=== PATIENT | female | born 1960 | race Caucasian/White ===

== ENCOUNTER 2016-11-30 14:57 | Inpatient (IN) | payer BC ==
[~2016-11-30] VITALS: Ht 162.6 cm; Wt 53.3 kg
[2016-11-30] MEDS ORDERED: ESTR1.25 PO (15:15)
[2016-11-30] MEDS ORDERED: LOSA1TAB19 PO (15:15)
--- NOTE | 2016-11-30 15:20 | NUR ---
ARRIVAL PATIENT ARRIVED TO ED[facility] AMBULATORY, C/O OF EPIGASTRIC PAIN TODAY, WAS SEEN RECENTLY IN THE URGENT CARE FOR NAUSEA AND VOMITING, SENT HOME WITH ZOFRAN, DID TAKE IT FOR A COUPLE OF DAY STARTED TO FEEL BETTER, BUT EPIGASTRIC PAIN CONTINUED AFTER EATING STEW. DECIDED TO TAKE ZOFRAN AND COME TO ED FOR FURTHER EVAL BY EDP. NO DISTRESS NOTED.
--- NOTE | 2016-11-30 15:48 | ER.PDOC ---
General Chief Complaint: Abdomen Pain Stated Complaint: ABD PAIN Time seen by MD: 15:40 Source: patient Exam Limitations: no limitations History of Present Illness Initial Comments Mid epigastric pain associated with N/V/D for 5 days. Saw urgent care this weekend and was given Zofran which has been helpful. Timing/Duration: intermittent, other (5 days) Severity/Quality: mild, cramping Radiation: back Associated Symptoms: back pain, diarrhea, heartburn, nausea/vomiting Exacerbated by: food Relieved By: nothing Allergies: Coded Allergies: No Known Allergies (Unverified , 11/30/16) Home Meds Reported Medications Esomeprazole Magnesium (Nexium)40 Mg Capsule.dr1 Cap PO DAILY #90 CAP Ref 3 11/30/16 Estrogens, Conjugated (Premarin)1.25 Mg Tablet1 Tab PO DAILY #90 TAB Ref 3 11/30/16 Losartan/Hydrochlorothiazide (Losartan-Hctz 50-12.5 Mg Tab)1 Each Tablet1 Tab PO DAILY #90 TAB Ref 3 11/30/16 Vital Signs First Vital Signs Date Time Temp Pulse Resp B/P Pulse Ox O2 Delivery O2 Flow Rate FiO2 11/30/16 15:10 98.7 80 20 99 11/30/16 15:14 120/77 Last Vital Signs Date Time Temp Pulse Resp B/P Pulse Ox O2 Delivery O2 Flow Rate FiO2 11/30/16 15:14 98.7 80 20 120/77 99 Past Medical History Medical History: high cholesterol Surgical History: no surgical history LMP (females 10-50): postmenopause Family History Significant Family History: heart disease (Maternal aunt and uncle), cancer ( Pancreatic in father) Social History Smoking: cigarettes, greater than 1 pack/day Alcohol Use: none Drug Use: none Constitutional: no symptoms reported EENTM: no symptoms reported Respiratory: no symptoms reported Cardiovascular: no symptoms reported Gastrointestinal: abdominal pain diarrhea nausea poor appetite vomiting Genitourinary: no symptoms reported Musculoskeletal: back pain Skin: no symptoms reported Psychiatric/Neurological: no symptoms reported Endocrine: no symptoms reported Hematologic/Lymphatic: no symptoms reported All Other Systems: Reviewed and Negative Physical Exam General Appearance: WD/WN, Mild Distress, Thin HEENT: PERRL/EOMI Neck: Non-Tender, Full Range of Motion, Supple, Normal Inspection Respiratory: chest non-tender, lungs clear, normal breath sounds, no respiratory distress Cardiovascular: Normal Peripheral Pulses, Regular Rate, Rhythm, No Edema, No Gallop, No JVD, No Murmur Gastrointestinal: Normal Bowel Sounds, Soft, Tenderness (mid epigastric) Back: Normal Inspection, No CVA Tenderness Extremities: Normal Range of Motion, Non-Tender, Normal Inspection, No Pedal Edema, No Calf Tenderness, Normal Capillary Refill 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 Understands the need for admission due to hypokalemia. EKG/XRAY/CT/US EKG: NSR CT Comments: Abdomen: gallbladder sludge, distended stomach Consult/PCP Time Consult/PCP Called: 17:05 Consult/PCP: Dr. Bernstein Reason/Comments: Admission Request, accepted admission Course Blood Pressure Systolic: 120 Blood Pressure Diastolic: 77 Blood Pressure Mean: 91 Departure Time of Disposition: 17:09 Disposition: 09 ADMITTED INPATIENT Impression: Primary Impression: Hypokalemia, gastrointestinal losses Additional Impression: Acute gastroenteritis Condition: Stable Referrals: JUANCARLOS LOPEZ MD (PCP) PRIMARY CARE PROVIDER Additional Instructions: Will be admitted to Dr. Bernstein under obs. Problem Qualifiers ARY CURRAN MD Nov 30, 2016 15:48 MALCOLM FARFAN MD Nov 30, 2016 17:18
--- NOTE | 2016-11-30 15:50 | NUR ---
CT PT TAKEN TO CT
[2016-11-30 16:01] LABS: BASOPHIL % 0.2 % (0.0-0.2); EOSINOPHIL # 0.1 10^3/uL (0.0-0.2); EOSINOPHIL % 0.8 % (0.0-5.0); HEMOGLOBIN 12.9 g/dL (12.0-15.0); LYMPHOCYTES # 1.3 10^3/uL (1.0-4.8); LYMPHOCYTES % 12.5 % (24.0-44.0); MEAN CELL HGB 31.9 pg (26-34); MEAN CELL HGB CONCENTRATION 34.3 g/dL (33-37); MEAN CORP VOLUME 92.8 fL (78-100); MONOCYTES % 9.3 % (5.0-12.0); NEUTROPHIL # 8.2 10^3/uL (1.8-7.7); NEUTROPHILS % 77.1 % (41.0-85.0); RED CELL DISTRIBUTION WIDTH 12.8 % (11.5-14.5); WHITE BLOOD CELL 10.6 10^3/uL (4.5-11.0)
--- NOTE | 2016-11-30 16:02 | NUR ---
CT PT BACK FROM CT
[2016-11-30 16:13] LABS: BILIRUBIN,URINE NEGATIVE (NEGATIVE); UROBILINOGEN,URINE NORMAL (NEGATIVE)
[2016-11-30 16:18] LABS: ALANINE AMINOTRANSFERASE(ML) 41 U/L (12-78); ALKALINE PHOSPHATASE 93 U/L (50-136); ASPARTATE AMINO TRANSFERASE 76 U/L (0-35); CALCIUM 8.2 mg/dL (8.4-10.5); CARBON DIOXIDE 28.7 mmol/L (20.0-32); GLUCOSE 139 mg/dL (70-110)
--- NOTE | 2016-11-30 16:18 | DIREP ---
PROCEDURE:CT ABD/PELVIS WITHOUT CONTRAST TECHNIQUE:No oral contrast was given. Axial cuts were obtained from the dome of the diaphragm to the ischial tuberosities. No intravenous contrast was given. The images were viewed at lung and soft tissue settings. Sagittal and coronal reconstructions are provided. COMPARISON:None. INDICATIONS:Epigastric Abdominal Pain FINDINGS: LOWER CHEST:No infiltrate or pleural effusion. LIVER:Normal. BILIARY:Distended gallbladder with tiny layering stones or sludge. No biliary duct dilatation. PANCREAS:Normal. SPLEEN:Normal. URINARY TRACT:No renal or ureteral stone, obstruction or perinephric inflammation. Unremarkable urinary bladder. ADRENALS:Normal. AORTA/VASCULAR:Aortoiliac calcification without dilatation. RETROPERITONEUM:Normal. BOWEL/MESENTERY:Large volume of fluid and food material in the stomach. No obvious mass, inflammatory stranding, free fluid or air. Nonvisualized appendix. ABDOMINAL WALL:Normal. PELVIS:Hysterectomy. BONES:L5/S1 disc degenerative changes. OTHER:Normal. CONCLUSION: 1. Distended gallbladder containing layering gravel or sludge. 2. Prominent gastric distention may indicate gastroparesis or outlet obstruction. Dictated by: Parul Davies MD on 11/30/2016 at 04:12 PM
[2016-11-30 16:22] LABS: APPEARANCE,URINE CLEAR (CLEAR); UA COLOR YELLOW (YELLOW)
[2016-11-30 16:23] LABS: WBC,URINE 0-2 WBC/HPF (0-2)
[2016-11-30] MEDS ORDERED: ESOM40CA PO (16:26)
--- NOTE | 2016-11-30 17:00 | PRM.ACF1 ---
Admission Criteria Forms ABDOMINAL PAIN Clinical Indications for Admission to Inpatient Care (Place 'X' for any and all applicable criteria): Admission is indicated for ANY ONE of the following(1)(2)(3)(4)(5): [X]I. Inpatient admission required rather than observation care (Also use Abdominal Pain: Observation Care, as appropriate) because of ANY ONE of the following: [ ]a) Severe pain requiring acute inpatient management [ ]b) Identification of etiology/finding that requires inpatient care (eg, aortic dissection, free air) [ ]c) Absent bowel sounds with complete ileus(6) [ ]d) Suspected toxic megacolon [X]e) Severe electrolyte abnormalities requiring inpatient care [ ]f) High fever or infection requiring inpatient admission as indicated by ANY ONE of following(7)(8): [ ] i) Appropriate outpatient or observational care antimicrobial treatment unavailable, not effective, or not feasible [ ] ii) Documented bacteremia [ ] iii) Temperature > 104.9 degrees F (oral) [ ] iv) T >103.1 F (oral) or < 96.8 F(rectal) that does not respond to all emergency treatment measures [ ]g) Signs of intestinal obstruction [B] [ ]h) Hemodynamic instability [ ]i) IV fluid to replace significant ongoing losses (greater than 3 L/m2 per day) (12)(13) [ ]j) Percutaneous or open drainage (eg, abscess, biliary tract ) procedures [ ]k) Parenteral nutrition regimen that must be implemented on inpatient basis [ ]l) Other condition,treatment or monitoring requiring inpatient admission. [ ]II. Peritoneal signs present [ ]III. Surgery needed that cannot be performed on an ambulatory basis. [ ]IV. Evaluation requires patient to not eat or drink for extended period ( eg, more than 24 hours). [ ]V. Contraindications and/or Inappropriate clinical situations for Observational Care in patients with abdominal pain, when ANY ONE of the following is required: [ ]a) Thorough evaluation is required to prevent catastrophic events due to delays in diagnosing (e.g.Mesenteric ischemia) 1,3 [ ]b) Patient with severe pathology or with chronic symptoms unlikely to improve in the ED stay (3) [ ]. General contraindications and/or Inappropriate clinical situations for Observational Care in patients with abdominal pain, when ANY ONE of the following is required: [ ]a) Prediction of prolongation of LOS based on ANY ONE of the following may be considered as a contraindication for observational care 2, 3, 4, 5, 6, 7, 8, 9, 10, 11 [ ]i) Age > 65 yrs. [ ]ii) Patient arriving by ambulance [ ]iii) Patient with high acuity [ ]iv) Patient requiring vital sign monitoring [ ]v) Patient on IV medication [ ]b) Systolic blood pressures 180mmHg 3,12 [ ]c) Patient with altered mental status including delirium and other alteration of consciousness, (3) [ ]d) Patient whose discharge disposition will be to a [facility] home or rehabilitation home should not be managed in Emergency Department Observation Unit. CMS rule requires 3 days hospital stay before such placement.3,13 [ ]e) Patient with failure to thrive due to broad array of etiologies 3,16,17 [ ]f) Inability to ambulate 3,14 Extended stay beyond goal length of stay may be needed for(2)(3): [ ]a) Persistent abdominal pain with suspected intra-abdominal process [ ]b) Diagnosed condition requiring continued stay (e.g., pancreatitis, complicated diverticulitis) [ ]c) Surgery (e.g., colectomy) The original [employer] content created by [employer] has been revised. The portions of the content which have been revised are identified through the use of italic text or in bold, and [facility] has neither reviewed nor approved the modified material.All other unmodified content is copyright [employer]. Please see references footnoted in the original [employer] edition 2016 KATIE ALEXANDER CDS Nov 30, 2016 17:00 MALCOLM FARFAN MD Nov 30, 2016 17:27
--- NOTE | 2016-11-30 17:00 | NUR ---
DR CRESENCIO CURRAN, RESIDENT, ON PHONE WITH DR DUPONT
[2016-11-30] MEDS ORDERED: KCL 20 MEQ/100 ML IV STA (17:21)
[2016-11-30] MEDS ORDERED: KLOR-CON 10 PO STA (17:21)
[2016-11-30] MEDS ORDERED: KCL 20MEQ/100ML 100 ML IV ONE (17:29)
[2016-11-30] MEDS ORDERED: KLOR-CON 10 PO ONE (17:29)
[2016-11-30 17:55] VITALS: BP 121/77
[2016-11-30] MEDS ORDERED: NS 1000ML 1,000 ML ONE (18:18)
[2016-11-30] MEDS ORDERED: [UNRECOGNIZED DRUG - OTHER] IV STA (19:20)
[2016-11-30] MEDS ORDERED: NEXIUM I.V. IV ONE (21:20)
[2016-11-30] MEDS ORDERED: MAGNESIUM-D5W 1 GM/100 ML SOLN 100 ML IV ONE (21:21)
[2016-11-30] MEDS ORDERED: MAGNESIUM-D5W 1 GM/100 ML SOLN 100 ML IV STA (21:34)
--- NOTE | 2016-11-30 21:58 | HPH ---
ADMIT DATE: 11/30/2016 The patient is being placed under observation to Med-Surg. PRIMARY CARE PHYSICIAN: Mg Campbell MD ADMITTING DIAGNOSES: 1. Nausea, vomiting with right upper quadrant and epigastric pains and loose stools. 2. Hypokalemia with hypomagnesemia. 3. Hypertension with GERD and postmenopausal. CHIEF COMPLAINT: "I threw up and had loose stools and had belly pain." HISTORY OF PRESENT ILLNESS: The patient is a very pleasant 56-year-old female with known hypertension and GERD who started off waking up Tuesday, which was approximately 4 days ago with nausea and nonbilious vomiting. She had vomited up her food the night before. She cannot recall what she ate on night though and this progressed throughout Tuesday to the point where she was having 3 episodes of loose stool. She took some Tums and [id number] antacids. She took her Nexium that normally helps her with her reflux and the pain subsided throughout the day. The next day she did fine and the following day she did fine up until yesterday when she started to have increasing nausea and nonbilious vomiting again. No diarrhea. No loose stools reported at this time. She had increasing pains in her upper abdomen and this is what prompted her to go to the ER today. No recent travel noted. She has not eaten anything out of the ordinary. She did remark that 2 days ago that she ate some pot stew and after that she felt very nauseated, had abdominal pains, so both times it was after she was eating. She denies any fevers, no night sweats, no syncope, no lethargy. No dysuria. No trauma reported. PAST MEDICAL HISTORY: Hypertension for about 4 years, GERD for many years and she is postmenopausal. PAST SURGICAL HISTORY: She had a scope done 20 years ago and said that she had esophagitis at that time. ALLERGIES: NO KNOWN DRUG ALLERGIES. MEDICATIONS: She is on include Nexium, Premarin and losartan/HCT, 50/12.5 mg daily. SOCIAL HISTORY: She smokes about a pack a day. No illicit drugs, no alcohol reported. FAMILY HISTORY: Asked and noncontributory for this admission. PHYSICAL EXAMINATION: VITAL SIGNS: When she came in, temperature is 98.7, pulse rate 80, respirations 20, blood pressure 120/77 and O2 sats of 99% on room air. My physical exam is as follows: GENERAL: She is in no acute distress to me, awake and alert, oriented x 4. HEENT: Oropharynx is clear. Moist mucous membranes noted. NECK: Supple, no JVD, no bruits. HEART: S1, S2 audible. She was not tachycardic. LUNGS: Clear bilaterally. She is not tachypneic. ABDOMEN: Bowel sounds are present. She was tender to the right upper quadrant and epigastrium. No rebound, no guarding noted. No masses felt. No CVA tenderness on her back. No edema to her lower extremities. No petechia, no purpura. 2+ distal pulses are noted. LABORATORY DATA: Labs were drawn. CBC was normal. Coags were normal. Urine was normal. H. pylori was negative. Chemistry panel showed potassium 2.5, mag of 1.7, AST is 76. CK was elevated to 326, CK-MB elevated at 7.2, but troponin I was less than 0.02. Lipase was normal. IMAGING STUDIES: She had a CAT scan of the abdomen and pelvis without contrast that just showed distended gallbladder containing sludge, prominent gastric distention. ASSESSMENT: We have this female with nausea, vomiting with loose stools, right upper quadrant pain and epigastric pain with underlying hypertension. EKG shows some LV strain, but she is not having any cardiac symptoms currently. I am concerned about a gastritis picture versus peptic ulcer disease versus gallbladder disease. I will continue her home medications, which includes PPI for stomach. I will get a right upper quadrant ultrasound to look at the gallbladder tomorrow and get an echo to look at the heart as well. I will draw some serial cardiac enzymes on her and see how she will do by tomorrow. Valencia Bernstein MD DR: MARY/deysi JOB# [id number]
[2016-11-30] MEDS ORDERED: HNS 1000ML/KCL 20MEQ 1,000 ML ONE (22:49)
[2016-11-30] MEDS: HNS 1000ML/KCL 20MEQ 1,000 ML IV SCH (22:50)
[2016-12-01 00:10] VITALS: BP 133/82
[2016-12-01 04:46] VITALS: BP 129/78
[2016-12-01 06:06] LABS: CALCIUM 7.9 mg/dL (8.4-10.5); GLUCOSE 97 mg/dL (70-110)
--- NOTE | 2016-12-01 07:00 | NUR ---
REPORT REPORT RECEIVED ON PT. THIS NURSE ASSUMED CARE AT THIS TIME. PT CONTINUES TO BE NPO, AWAITING GALLBLADDER SONO.
[2016-12-01] MEDS: COZAAR PO SCH ×2 (09:00→16:32)
[2016-12-01] MEDS: PROTONIX PO SCH (09:00)
[2016-12-01] MEDS: PREMARIN PO SCH (09:00)
[2016-12-01] MEDS: HYDROCHLOROTHIAZIDE PO SCH (09:00)
[2016-12-01 10:08] VITALS: BP 130/88
--- NOTE | 2016-12-01 10:30 | NUR ---
DISCHARGE PLAN VISITED WITH PATIENT AND FAMILY FRIEND CONCERNING DISCHARGE PLAN AND NEED. PATIENT STATED SHE LIVES @ HOME WITH , IS INDEPENDENT ON ADLS AND DRIVES DAILY. CM ADDRESSED PATIENT SAFETY HANDOUT, NO QUESTIONS ASKED AND VOICED UNDERSTANDING. PATIENT VOICED CONCERN REGARDING TIME OF GALLBLADDER US VERSES NPO STATUS. REINFORCEMENT EDUCATION GIVEN TO PATIENT REGARDING HER GALLBLADDER US VERSES NPO STATUS WITH VERBAL UNDERSTANDING AND TEACH BACK BY PATIENT. CM ALSO VERIFIED TIME WITH US DEPARTMENT, STATED PATIENT WAS NEXT. CM INFORMED PATIENT WITH VERBAL UNDERSTANDING, STATED "OKAY THANK YOU FOR CHECKING I WOULD JUST REALLY LIKE A CUP OF COFFEE, MY NURSE PROMISED COFFEE SOON I WAS DONE WITH MY US." Cass TORRES RN CHARGE NURSE NOTIFIED OF PATIENTS COFFEE REQUEST S/P US. CURRENT GOAL FOR PATIENT IS TO RETURN HOME WITH TO ROUTINE SELF CARE UPON DISCHARGE. CONTACT INFORMATION PROVIDED. NO FURTHER CM OR DISCHARGE NEEDS KNOWN @ THIS TIME.
[2016-12-01] MEDS: HNS 1000ML/KCL 20MEQ 1,000 ML IV SCH ×2 (10:51→21:39)
--- NOTE | 2016-12-01 12:26 | DIREP ---
PROCEDURE:US ABDOMEN LIMITED COMPARISON:None. INDICATIONS:RUQ pain with N/V, DISTENDED GB FINDINGS: PANCREAS:Partially obscured by overlying bowel gas LIVER:Normal hepatic parenchymal architecture. Normal, hepatopetal flow in the portal vein. GALLBLADDER:Echogenic material inferior with sludge and shadowing stones. Gallbladder wall measures 4 mm BILIARY:4 mm common bile duct. There is no biliary ductal dilatation. RIGHT KIDNEY:11.2 cm. Normal. No hydronephrosis. OTHER:Negative. No ascites is identified. CONCLUSION: 1. Cholelithiasis. Wall thickening suggest cholecystitis. Dictated by: Wang Mercado Jr. on 12/01/2016 at 12:21 PM
--- NOTE | 2016-12-01 13:53 | NUR ---
STATUS PT AMBULATING IN HALLWAY AT THIS TIME. NO DISTRESS NOTED.
[2016-12-01 16:28] VITALS: BP 141/93
--- NOTE | 2016-12-01 18:57 | NUR ---
Report received, assumed care of pt.
[2016-12-01 20:05] VITALS: BP 140/96
--- NOTE | 2016-12-01 20:05 | NUR ---
Assessment completed as charted, see flowsheet for further notes. Pt up ambulating hallway frequently. Pt denies c/o pain. Does verbalize some concern over impending surgery in AM, but appears overall comfortable with what will happen. Shortly discussed this with patient during this time. Spouse at bedside. Pt denies further needs at this time. States she does want an HS snack before MN after which she will be NPO. Snack will be provided. Will continue to monitor closely.
--- NOTE | 2016-12-01 21:10 | PRM.PN ---
Subjective Subjective Subjective Pt doing ok; visited by Dr. Archuleta and is in good spirits Patient History: Patient reports no known family medical history. VTE VTE Risk Total Score: 1 VTE Risk Score VTE Risk: Score 0-1 = Low Risk (Aggressive mobilization; early ambulation; no VTE prophylaxis required) Score 2: Moderate Risk (Intermittent/Pneumatic Compression Device OR Lovenox/Heparin/Coumadin) Score 3-4: High Risk (Intermittent/Pneumatic Compression Device AND Lovenox/Heparin/Coumadin) Score > or =5: Highest Risk (Intermittent/Pneumatic Compression Device AND Lovenox/Heparin/Coumadin) Antico:Hep/LMWH/Coum/Xarelto: Yes Mechanical device ordered: Yes Review of Systems Constitutional: No: Chills, Fever, Sweats, Weakness Eyes: No: Conjunctivae inflammation, Eyelid inflammation, Pain, Vision change ENT: No: Ear discharge, Ear pain, Nose congestion, Nose discharge, Nose pain Respiratory: No: Cough, Dry, SOB with excertion, Shortness of breath, Wheezing Cardiovascular: No: Chest Pain, Edema, Orthopnea, Paroxysmal Noc. Dyspnea Gastrointestinal: : Abdominal PainNo: Nausea, Vomiting Genitourinary: No Dysuria, No Frequency, No Incontinence Musculoskeletal: No: arm pain, back pain, neck pain, other, shoulder pain Skin: No: Bruising, Jaundice, Lesions, Rash Neurological: No: Change in speech, Confusion, Incoordination, Weakness Allergies: Coded Allergies: No Known Allergies (Unverified , 11/30/16) Scheduled Esomeprazole Magnesium (Nexium) 1 CAP PO DAILY (Reported) Estrogens, Conjugated (Premarin) 1 TAB PO DAILY (Reported) Losartan/Hydrochlorothiazide (Losartan-Hctz 50-12.5 Mg Tab) 1 TAB PO DAILY ( Reported) Objective Vitals and I/O Vital Sign - Last 24 Hours 12/01/16 12/01/16 12/01/16 12/01/16 00:10 04:46 05:43 09:00 Temp 97.8 98.0 Pulse 78 78 Resp 18 18 B/P 133/82 129/78 Pulse Ox 99 97 O2 Delivery Room Air Room Air Room Air Room Air 12/01/16 12/01/16 12/01/16 10:08 16:28 16:32 Temp 98.0 97.9 Pulse 70 74 Resp 18 18 B/P 130/88 141/93 141/93 Pulse Ox 98 100 O2 Delivery Room Air Room Air Intake and Output 11/30/16 11/30/16 12/01/16 15:00 23:00 07:00 Intake Total 480 ml 2526 ml Output Total 625 ml 400 ml Balance -145 ml 2126 ml General: Alert, Cooperative, No acute distress HEENT: Atraumatic, PERRLA, EOMI, Mucous membr. moist/pink Neck: Supple, No JVD, No LAD Lungs: Clear to auscultation, Normal air movement Heart: Normal S1, Normal S2 Abdomen: Normal bowel sounds, Soft, No tenderness Extremities: No clubbing, No cyanosis, No edema Skin: No rashes, No breakdown Neuro: Normal speech Psych/Mental Status: Mental status NL, Mood NL Medication Reconciliation Scheduled Esomeprazole Magnesium (Nexium) 1 CAP PO DAILY (Reported) Estrogens, Conjugated (Premarin) 1 TAB PO DAILY (Reported) Losartan/Hydrochlorothiazide (Losartan-Hctz 50-12.5 Mg Tab) 1 TAB PO DAILY ( Reported) Assessment/Plan Assessment/Plan Assessment/Plan 56 yo female with cholelithiasis, abd pains, resolved hypokalemia and hypomagnesemia - to get lap angeline and EGD tomorrow - cont IVF - ambulate - follow clinically Problems: Patient History: Patient reports no known family medical history. SENG DUPONT MD Dec 01, 2016 21:10
[2016-12-02] VITALS (9 sets, daily range): BP systolic 136–166; BP diastolic 60–96
--- NOTE | 2016-12-02 07:02 | NUR ---
Report given to oncoming shift.
[2016-12-02] MEDS ORDERED: LOVENOX SQ STA (07:10)
[2016-12-02] MEDS ORDERED: LOVENOX SQ ONE (07:29)
--- NOTE | 2016-12-02 08:55 | NUR ---
PT TRANSPORTED VIA BED TO SURGICAL DEPARTMENT BY SURGICAL STAFF
[2016-12-02] MEDS: HYDROCHLOROTHIAZIDE PO SCH (09:00)
[2016-12-02] MEDS: HNS 1000ML/KCL 20MEQ 1,000 ML IV SCH ×2 (09:00→19:30)
[2016-12-02] MEDS: PROTONIX PO SCH (09:00)
[2016-12-02] MEDS: PREMARIN PO SCH (09:00)
[2016-12-02] MEDS ORDERED: NS 100ML 100 ML IV ONE (09:08)
[2016-12-02] MEDS ORDERED: MEFOXIN ONE (09:08)
[2016-12-02] MEDS ORDERED: LACTATED RINGERS 1,000 ML ONE ×2 (09:26→10:10)
[2016-12-02] MEDS ORDERED: XYLOCAINE ONE (09:40)
[2016-12-02] MEDS ORDERED: VERSED ONE (09:41)
[2016-12-02] MEDS ORDERED: SUBLIMAZE ONE (09:41)
[2016-12-02] MEDS ORDERED: ZEMURON IV ONE (09:42)
[2016-12-02] MEDS ORDERED: QUELICIN ONE (09:42)
[2016-12-02] MEDS ORDERED: DIPRIVAN IV ONE (09:43)
[2016-12-02] MEDS ORDERED: ZOFRAN ONE (09:43)
[2016-12-02] MEDS ORDERED: TORADOL ONE (09:43)
[2016-12-02] MEDS ORDERED: NEOSTIGMINE ONE (09:44)
[2016-12-02] MEDS ORDERED: DECADRON ONE (09:44)
[2016-12-02] MEDS ORDERED: ROBINUL ONE (09:45)
[2016-12-02] MEDS ORDERED: LACTATED RINGERS 1,000 ML IV PRN (10:00)
[2016-12-02] MEDS ORDERED: VENTOLIN HFA IH ONE (10:05)
[2016-12-02] MEDS ORDERED: SODIUM CHLORIDE IRR BAG 1,000 ML ONE (10:10)
[2016-12-02] MEDS ORDERED: SENSORCAINE-EPI 0.25%-0.0005 ONE (10:11)
[2016-12-02] MEDS ORDERED: SODIUM CHLORIDE IR ONE (10:11)
[2016-12-02] MEDS ORDERED: MEFOXIN IM ONE (12:00)
--- NOTE | 2016-12-02 12:15 | NUR ---
RECEIVED BEDSIDE REPORT POST LAP GM, MONITORS INTACT, CALL LIGHT IN REACH, HANDRAIL UP X2, STATES PAIN IS A 3 ON A SCALE OF 0-10. DENIES OTHER NEEDS AT THIS TIME
--- NOTE | 2016-12-02 13:00 | NUR ---
PT AMBULATORY UP AND DON HALLWAY.
--- NOTE | 2016-12-02 13:47 | CNH ---
DATE OF CONSULTATION: 12/01/2016 CHIEF COMPLAINT: Cholelithiasis with symptoms. HISTORY OF PRESENT ILLNESS: This is a 56-year-old female who has had upper abdominal pain for more than 5 days. She reports she has had post parandial symptoms. She has had nausea and vomiting. Her symptoms are not improved with her chronic PPI use. She is admitted to Med/Surg for other service of the hospitalist. She has had an ultrasound and it is positive for gallbladder wall thickening and cholelithiasis, changes consistent with cholecystitis. At the time of my assessment, she is alert and pleasant. She reports the pain was epigastric and in right upper quadrant with posterior radiation, associated symptoms as above. PAST MEDICAL HISTORY: Includes GERD. PAST SURGICAL HISTORY: Includes implants. ALLERGIES: NO KNOWN DRUG ALLERGIES. HOME MEDICATIONS: Per list. INPATIENT MEDICATIONS: Per MAR. SOCIAL HISTORY: Positive for smoke tobacco for 30 years, negative for alcohol or illicit drug use. FAMILY HISTORY: Mother is living at age 79 and is relatively healthy. Father is at age 81, pancreatic cancer. REVIEW OF SYSTEMS: CONSTITUTIONAL: No fever, chills or weakness. ENDOCRINE: She has no known thyroid disease or diabetes. CARDIOVASCULAR: No chest pain or trouble breathing. PULMONARY: No dyspnea or cough. GASTROINTESTINAL: Positive for GERD and symptoms per HPI. MUSCULOSKELETAL: No complaints. NEUROLOGIC: No seizures or blackouts. PHYSICAL EXAMINATION: VITAL SIGNS: Temperature is 97.9, pulse 74, blood pressure 141/93, respiratory rate is 18. HEENT: Normocephalic, atraumatic. [place] mucous membranes. NECK: Supple and soft. Trachea is midline. She has no JVD or thyromegaly. HEART: Has regular rate and rhythm. LUNGS: Clear bilaterally. ABDOMEN: Bowel sounds positive, soft. She has minimal tenderness to the upper abdomen. EXTREMITIES: Show positive radial pulse bilaterally. Positive dorsal pedal pulses bilaterally. NEUROLOGIC: No acute finding. SKIN AND INTEGUMENT: Warm and dry. LABORATORY DATA: WBC is 10.6, hemoglobin 12.9, platelet count is 271,000. Chemistry shows BUN of 8 and creatinine 0.57. PT is 10.3, PTT is 21.6. her weight is 53.5 kilos. IMAGING STUDIES: Ultrasound shows cholelithiasis. SURGICAL ASSESSMENT: 1. Cholelithiasis, probable cholecystitis symptoms. 2. History of GERD. PLAN: 1. The patient seen and examined. Chart is reviewed. 2. Agree with the medical management at this point. I discussed with the patient treatment plan. We will plan for laparoscopic cholecystectomy and EGD tomorrow. Jordy Archuleta DO DR: NATHAN/deysi JOB# [id number] CC: Valencia Campbell MD MTDD
--- NOTE | 2016-12-02 14:01 | OPH ---
DATE OF SURGERY: 12/02/2016 PREOPERATIVE DIAGNOSES: 1. Cholelithiasis symptoms. 2. History of GERD. POSTOPERATIVE DIAGNOSES: 1. Chronic cholecystitis. 2. Mild gastritis. SURGEON: Jordy Archuleta DO IS PROJECT MANAGER: OR staff. ANESTHESIA: General anesthesia by Ms. Carpenter, the BENEFITS CLERK plus local used on the field. PROCEDURES PERFORMED: 1. Laparoscopic-assisted cholecystectomy. 2. Esophagogastroduodenoscopy with biopsy. SPECIMENS: 1. Gallbladder to path. 2. Gastric mucosa to path. ESTIMATED BLOOD LOSS: Less than 20 mL for all procedures. COUNTS: At the completion of the case, the counts were correct per OR staff. DESCRIPTION OF PROCEDURE: The patient is a 56-year-old female known to me from previous consult. Prior to procedure, informed consent was obtained. At time of procedure, she was taken to the operative suite, placed in supine position. After timeout was completed, general anesthesia obtained. Her abdomen was prepped and draped in normal fashion. Local was used to anesthetize the periumbilical region, incision created and 5 mm trocar was introduced in the abdomen with Endo camera visualization. Once in the abdomen, pneumoperitoneum was induced to level of 14 mmHg. With camera visualization, a 12 mm trocar was placed in the epigastrium, 5 mm trocar was placed laterally in the right upper quadrant and then another 5 mm trocar was placed in the midline of right upper quadrant. The gallbladder was retracted and exposed. Attention was directed towards the infundibulum. Careful dissection was made to isolate what appears to be the cystic duct. Once the cystic duct is clearly isolated, it was clipped twice proximally and once distally and divided sharply. Further dissection was made to isolate cystic arteries, clipped twice proximally and once distally and divided sharply. The gallbladder was then removed from liver bed using electrocautery. Once completely removed, it was placed in EndoCatch bag, removed through the epigastric trocar and passed to backtable. Trocar was reinserted and gallbladder fossa was irrigated with sterile saline, inspected for bleeding. Any bleeding was identified, was controlled with electrocautery. With meticulous hemostasis noted, irrigation and suction and closure was pursued. With camera visualization, all 4 trocar sites were localized using Marcaine from the preoperative phase. The camera was placed in the superior trocar and the three inferior trocars were removed with camera visualization. There was noted to be no bleeding. The superior trocars were removed with camera visualization to trocar tract, there was noted to be no bleeding. Fascia on the epigastric incision closed with 0 Vicryl suture. The four skin incisions closed with 4-0 Monocryl. The patient is cleaned. Steri-Strips applied. Bandage applied. Drapes removed. The patient remains anesthetized. Esophagogastroduodenoscope was advanced transorally with pneumoinsufflation distally into second portion of duodenum. Once the duodenum was adequately visualized, camera was slowly withdrawn to facilitate visualization of duodenal bulb and the pylorus. There was noted to be minimal gastritis and biopsies are obtained. The retroflexed maneuver was performed. Cardia and fundus were within normal limits. Camera was reduced Hemostasis noted to be excellent. Stomach was decompressed. Scope was slowly withdrawn. Distal, mid and proximal esophagus were all within normal limits. Vocal cords were not visualized as the patient has an endotracheal tube in place. The camera was removed. Procedure was discontinued. The patient tolerated these procedures well. There were no acute complications noted. At this time, she remains under the care of the Department of Anesthesia. Of note, the patient was strongly advised, when she feels better because she is over the age of 50, never had one that she have a screening colonoscopy. Jordy Archuleta DO DR: NATHAN/deysi JOB# [id number] CC: Valencia BOX
--- NOTE | 2016-12-02 14:30 | NUR ---
PT BACK TO BED. SITTING ON SIDE OF BED. MONITORS INTACT.
[2016-12-02] MEDS: NORCO 5MG PO PRN ×2 (14:36→22:50)
--- NOTE | 2016-12-02 15:47 | NUR ---
PT RESTING WITH EYES CLOSED IN SEMIFOWLERS POSITION, CALL LIGHT IN REACH.
--- NOTE | 2016-12-02 18:50 | NUR ---
Report received, assumed care of pt.
--- NOTE | 2016-12-02 19:03 | PRM.PN ---
Subjective Subjective Subjective Pt doing good after surgery/scope Patient History: Patient reports no known family medical history. VTE VTE Risk Total Score: 1 VTE Risk Score VTE Risk: Score 0-1 = Low Risk (Aggressive mobilization; early ambulation; no VTE prophylaxis required) Score 2: Moderate Risk (Intermittent/Pneumatic Compression Device OR Lovenox/Heparin/Coumadin) Score 3-4: High Risk (Intermittent/Pneumatic Compression Device AND Lovenox/Heparin/Coumadin) Score > or =5: Highest Risk (Intermittent/Pneumatic Compression Device AND Lovenox/Heparin/Coumadin) Antico:Hep/LMWH/Coum/Xarelto: Yes Mechanical device ordered: Yes Review of Systems Constitutional: No: Chills, Fever, Sweats, Weakness Eyes: No: Conjunctivae inflammation, Eyelid inflammation, Pain, Vision change ENT: No: Ear discharge, Ear pain, Nose congestion, Nose discharge, Nose pain Respiratory: No: Cough, Dry, SOB with excertion, Shortness of breath, Wheezing Cardiovascular: No: Chest Pain, Edema, Orthopnea, Paroxysmal Noc. Dyspnea Gastrointestinal: : Abdominal PainNo: Nausea, Vomiting Genitourinary: No Dysuria, No Frequency, No Incontinence Musculoskeletal: No: arm pain, back pain, neck pain, other, shoulder pain Skin: No: Bruising, Jaundice, Lesions, Rash Neurological: No: Change in speech, Confusion, Incoordination, Weakness Allergies: Coded Allergies: No Known Allergies (Unverified , 11/30/16) Scheduled Esomeprazole Magnesium (Nexium) 1 CAP PO DAILY (Reported) Estrogens, Conjugated (Premarin) 1 TAB PO DAILY (Reported) Losartan/Hydrochlorothiazide (Losartan-Hctz 50-12.5 Mg Tab) 1 TAB PO DAILY ( Reported) Objective Vitals and I/O Vital Sign - Last 24 Hours 12/01/16 12/01/16 12/02/16 12/02/16 20:05 20:05 04:00 07:42 Temp 97.0 97.7 Pulse 75 83 Resp 18 18 B/P 140/96 136/77 Pulse Ox 98 100 O2 Delivery Room Air Room Air Room Air 12/02/16 12/02/16 12/02/16 12/02/16 08:00 11:39 11:39 11:44 Temp 98.0 97.4 Pulse 81 89 103 Resp 16 18 16 B/P 151/90 140/92 158/82 Pulse Ox 98 100 100 O2 Delivery Room Air Hi Con Mask Room Air O2 Flow Rate 10 12/02/16 12/02/16 12/02/16 12/02/16 11:49 11:54 11:59 12:04 Temp 97.6 97.8 Pulse 89 83 75 76 Resp 18 18 18 18 B/P 154/88 153/70 147/60 149/90 Pulse Ox 95 96 96 98 O2 Delivery Room Air Room Air Room Air Room Air Intake and Output 12/01/16 12/01/16 12/02/16 15:00 23:00 07:00 Intake Total 900 ml 8094 ml Output Total 400 ml 100 ml Balance 500 ml 7994 ml General: Alert, Oriented X3, Cooperative, No acute distress HEENT: Atraumatic, PERRLA, EOMI, Mucous membr. moist/pink Neck: Supple, No JVD, No thyromegaly, +2 carotid pulse wo bruit Lungs: Clear to auscultation, Normal air movement Heart: Normal S1, Normal S2 Abdomen: Normal bowel sounds, Soft Extremities: No clubbing, No cyanosis Skin: No rashes Neuro: Normal gait, Normal speech, Sensation intact Psych/Mental Status: Mental status NL, Mood NL Medication Reconciliation Scheduled Esomeprazole Magnesium (Nexium) 1 CAP PO DAILY (Reported) Estrogens, Conjugated (Premarin) 1 TAB PO DAILY (Reported) Losartan/Hydrochlorothiazide (Losartan-Hctz 50-12.5 Mg Tab) 1 TAB PO DAILY ( Reported) Assessment/Plan Assessment/Plan Assessment/Plan 56 yo female with cholelithiasis, gastritis, HTN - increase activity - D/C planning for tomorrow is stable - PPI BID Problems: Patient History: Patient reports no known family medical history. SENG DUPONT MD Dec 02, 2016 19:03
--- NOTE | 2016-12-02 20:15 | NUR ---
Assessment completed as charted, see flowsheet for further notes. Pt states she has been trying to "Ambulate and Hydrate" like the doctor instructed her too. Teaching completed, see teaching record. Pt denies further needs at this time. Will continue to monitor closely. Call light within reach.
[2016-12-03 01:00] VITALS: BP 142/89
[2016-12-03] MEDS: HNS 1000ML/KCL 20MEQ 1,000 ML IV SCH (02:03)
[2016-12-03 04:00] VITALS: BP 171/97
[2016-12-03] MEDS ORDERED: COZAAR ONE (05:41)
--- NOTE | 2016-12-03 06:46 | NUR ---
r Addendum: 12/03/16 at 0820 by Shannon Pemberton RN- Chadd CARR Report received from warehouse worker 2nd shift. Assumed care of pt. Pt in bed awake and alert. Pt denies pain at this time. Trochar sites x4 noted to pt's abdomen. Bandaids noted to all 4 sites. Scant amount of bleeding on bandages noted. Bruising noted posterior to pt's umbilicus. Encouraged pt to ambulate and to use IS. Pt verbalized understanding. Call light within reach. No other needs determined at this time. Will continue to monitor.
--- NOTE | 2016-12-03 06:58 | NUR ---
Report given to oncoming shift.
[2016-12-03 08:32] VITALS: BP 156/94
[2016-12-03] MEDS ORDERED: PREMARIN PO SCH (09:00)
[2016-12-03] MEDS ORDERED: COZAAR PO SCH (09:00)
[2016-12-03] MEDS ORDERED: HYDROCHLOROTHIAZIDE PO SCH (09:00)
[2016-12-03] MEDS ORDERED: PROTONIX PO SCH ×2 (09:00)
--- NOTE | 2016-12-03 09:00 | NUR ---
Status Pt up in hallway ambulating length several times. Pt reports having no pain at this time. Pt tolerating ambulation with no apparent problem
--- NOTE | 2016-12-03 09:45 | CNH ---
DATE OF CONSULTATION: 12/03/2016 SUBJECTIVE: A 56-year-old female in no acute distress. She reports she has no nausea and vomiting, and her abdominal pain is minimal. OBJECTIVE: VITAL SIGNS: Last temperature is 98.2, last pulse 71, respiratory rate of 18, blood pressure is 171/97. ABDOMEN: Bowel sounds are positive, soft. She has minimal tenderness in the incisions sites. ASSESSMENT: 1. Postoperative day #1, laparoscopic cholecystectomy with cholelithiasis, cholecystitis. 2. Postoperative day #1, EGD with biopsy. 3. hypertension. PLAN: 1. The patient seen and examined. Chart is reviewed. 2. Increase diet as tolerated. She will need to follow up with me as an outpatient to review pathology findings. 3. Follow up with her PCP. 4. Continue care of the hospitalist. Jordy Archuleta DO DR: NATHAN/deysi JOB# [id number] CC: Valencia Campbell MD MTDD
--- NOTE | 2016-12-03 11:25 | NUR ---
Status Pt in [place] ambulating length from room to nurse station x2.
--- NOTE | 2016-12-03 12:30 | NUR ---
Discharge Educated pt on care of incision sites at home. Instructed on signs and symptoms of infection to monitor and report to Dr. Instructed on follow up appointment with Dr. Archuleta and Dr. Campbell. Pt verbalized understanding. Instructed to follow a low fat diet at home and to not lift over 15 lbs. Pt verbalized understanding. No other questions at this time.
[2016-12-03 13:17] VITALS: BP 156/81
--- NOTE | 2016-12-03 13:59 | DSH ---
DATE OF DISCHARGE: 12/03/2016 ADMITTING DIAGNOSES: 1. Right upper quadrant pain with nausea and vomiting. 2. Hypokalemia. 3. Hypomagnesemia. 4. Hypertension. 5. GERD. DISCHARGE DIAGNOSES: 1. Cholelithiasis status post laparoscopic cholecystectomy. 2. Resolved hypokalemia and hypomagnesemia. 3. Gastritis. 4. Hypertension. HOSPITAL COURSE: The patient is a very pleasant 56-year-old female who came in with abdominal pains with nausea and vomiting. Workup did reveal cholelithiasis and she had low potassium and magnesium levels and I corrected that, the first night. I consulted Dr. Archuleta and he did a laparoscopic cholecystectomy as well as an EGD. The EGD showed a gastritis picture, but no active bleeding. After surgery, she has been ambulating and doing fine and tolerating p.o. intake. She did have a bowel movement overnight and she feels good this morning. So she will be discharged today. I have asked her to stay on low-fat diet and ambulate frequently at home, to resume her home medications and she is to follow up with Dr. Archuleta next week and I have asked her to follow up with her PCP, Dr. Campbell in 2 weeks' time. Specifically, I have asked her to continue her Nexium 40 mg a day for her gastritis picture and she will continue to do this. Valencia Bernstein MD DR: MARY/deysi JOB# [id number] CC: Mg Campbell MD
[2016-12-03 14:00] VITALS: BP 156/81
--- NOTE | 2016-12-10 17:09 | ECHO ---
DATE OF SERVICE: 12/01/2016 INDICATIONS: A 56-year-old lady with cardiac murmur and shortness of breath. Echocardiographic study was requested to evaluate structural heart disease, valvular heart condition and assessment of systolic and diastolic parameters. FINDINGS: 1. Study quality was good. 2. Underlying rhythm is sinus rhythm. 3. LV systolic function was preserved. EF around 55-60%. No wall motion abnormality. No LVH, normal dimension of the LV cavity 4. RV size and EF were normal. 5. Both atria were normal in size. 6. Mitral valve was normal in size and function. No evidence of regurgitation or insufficiency. Doppler signal examination across the mitral valve showed normal diastolic parameters. Mitral valve mean gradient was 1.6 mmHg ruling out any significant stenosis. 7. Aortic valve is trileaflet, minimally calcified. Aortic valve mean velocity was 0.8 m/sec. Aortic valve area by VTI method was 2.7 cm2, normal values. 8. Mild tricuspid regurgitation. Pulmonary artery systolic pressure was between 35-40 mmHg. 9. No pericardial effusion noted. 10. Inferior vena cava was normal in size measuring 1.2 cm. IMPRESSION: 1. Preserved EF around 60%. No wall motion abnormality, normal LV dimension. 2. No LVH. 3. Normal RV size and EF. 4. Normal atrial size. 5. No significant valvular dysfunction. 6. No pericardial effusion. 7. Normal pulmonary artery systolic pressure. Jhoana Kowalski MD DR: JILL/deysi JOB# [id number]
[2016-12-28] MEDS ORDERED: IBUP200T63 PO (10:24)
[2016-12-28] MEDS ORDERED: FEXO180T72 PO (10:24)
== END 2016-12-03 14:00 | disposition home or self-care (01) | DRG 419 ==
LOC: ER 14:57 → MS 17:06 → OBSVTOIN 12-01 21:10
PROVIDERS: ADMIT Pediatrics; ATTEND Pediatrics
PROC: 0FT44ZZ Resection of Gallbladder, Percutaneous Endoscopic Approach (ICD-10-PCS; principal; 2016-12-02 10:27)
PROC: 0DB68ZX Excision of Stomach, Via Natural or Artificial Opening Endoscopic, Diagnostic (ICD-10-PCS; 2016-12-02 10:27)
DX: K80.10 Calculus of gallbladder with chronic cholecystitis without obstruction (principal); E83.42 Hypomagnesemia; E87.6 Hypokalemia; K21.9 Gastro-esophageal reflux disease without esophagitis; K29.70 Gastritis, unspecified, without bleeding; E78.00 Pure hypercholesterolemia, unspecified; M54.9 Dorsalgia, unspecified; I10 Essential (primary) hypertension; Z78.0 Asymptomatic menopausal state; F17.210 Nicotine dependence, cigarettes, uncomplicated; Z79.899 Other long term (current) drug therapy; Z80.0 Family history of malignant neoplasm of digestive organs; Z82.49 Family history of ischemic heart disease and other diseases of the circulatory system
CPT/HCPCS: 36415; 43239; 74176; 76705; 80048; 80053; 81000; 82550; 83690; 83735; 83880; 84484; 85025; 85610; 85730; 86677; 93005; 93307; 96374; 99285; G0378; J0330; J1100; J1650; J1885; J2250; J2405; J3010; J3475; J3480; J3490; J3940; J7030; J7050; J7120; J7611; J0694; J2710

== ENCOUNTER → 2018-01-17 | Outpatient (CLI) | payer BC ==
[~2018-01-17] MED LIST: ESOM40CA PO; ESTR1.25 PO; FEXO180T72 PO; IBUP200T63 PO; LOSA1TAB19 PO
--- NOTE | 2018-01-17 14:25 | DIREP ---
PROCEDURE:Digital Screening Mammogram TECHNIQUE:MLO and CC digital images of each breast are provided. Computer Assisted Detection (CAD) was utilized. COMPARISON:[facility], , MAMMO BILATERAL DIAGNOSTIC, 09/11/2015, 10:50 AM. INDICATIONS:SCEENING BREAST COMPOSITION:The breasts are extremely dense, which lowers the sensitivity of mammography. FINDINGS:There are no grouped microcalcifications, masses, or architectural distortions to suggest malignancy. There is no significant change as compared with the previous examination(s). IMPRESSION:No mammographic evidence of malignancy. RECOMMENDATIONS:Routine Screening Mammography per [employer] guidelines. OVERALL FINAL ASSESSMENT:BI-RADS 1 - Negative Mammogram Note: This facility participates in a mammography screening patient reminder system. Dictated by: Carlos Kendrcik DO on 01/17/2018 at 02:24 PM
== END | disposition home or self-care (01) ==
LOC: RAD 12:47
PROVIDERS: ATTEND Nurse Practitioner Family
DX: Z12.31 Encounter for screening mammogram for malignant neoplasm of breast (principal)
CPT/HCPCS: 77067

== ENCOUNTER → 2019-08-15 | Outpatient (CLI) | payer BC ==
--- NOTE | 2019-08-15 12:46 | DIREP ---
PROCEDURE:CHEST 2 VIEWS COMPARISON:None. INDICATIONS:R05 COUGH FINDINGS: LUNGS/PLEURA:No significant pulmonary parenchymal abnormalities. No effusions. VASCULATURE:Normal. Unremarkable pulmonary vasculature. CARDIAC:Normal. No cardiac silhouette abnormality or cardiomegaly. MEDIASTINUM:Normal. No visible mass or adenopathy. BONES:Normal. No fracture or visible bony lesion. OTHER:Negative. CONCLUSION:Normal examination. Dictated by: Wang Mercado Jr. on 08/15/2019 at 12:45 PM
== END | disposition home or self-care (01) ==
LOC: RAD 11:21
PROVIDERS: ATTEND Nurse Practitioner Family
DX: R05 Cough (principal); I10 Essential (primary) hypertension
CPT/HCPCS: 71046

== ENCOUNTER → 2020-06-27 | Outpatient (CLI) | payer BC ==
--- NOTE | 2020-06-27 11:06 | DIREP ---
PROCEDURE:US THYROID TECHNIQUE:Thyroid ultrasound was performed with a high-frequency transducer. COMPARISON:None. INDICATIONS:E04.9 NONTOXIC GOITER FINDINGS: THYROID OVERVIEW Right lobe - size: 4.2 x 1.8 x 1.5 cm, homogeneous, 3 nodules Isthmus - size: 0.2 cm, homogeneous, 0 nodules Left lobe - size: 3.3 x 1.7 x 1.3 cm, homogeneous, 1 nodule THYROID NODULES Right Lobe, #1, Middle 1/3, size: 0.6 x 0.3 x 0.4 cm, Description: spongiform, isoechoic, fszdo-xwap-zfok, smooth TI-RADS: 1, Recommendation: No F/U or FNA required Right Lobe, #2, Middle 1/3, size: 0.6 x 0.4 x 0.5 cm, Description: spongiform, isoechoic, kepcm-rbst-syhd, smooth TI-RADS: 1, Recommendation: No F/U or FNA required Right Lobe, #3, Lower 1/3, size: 0.8 x 0.4 x 0.7 cm, Description: solid or almost completely solid, isoechoic, sgant-vskl-quhy, smooth TI-RADS: 3, Recommendation: does not meet size criteria for F/U or FNA Left Lobe, #1, Middle 1/3, size: 0.5 x 0.4 x 0.4 cm, Description: spongiform, isoechoic, ffhoe-xney-sdcm, smooth TI-RADS: 1, Recommendation: No F/U or FNA required TI-RADS: 1 = Benign, 2 = Not Suspicious, 3 = Mildly Suspicious, 4 = Moderately Suspicious, 5 = Highly Suspicious Reference: 2017 JACR, ACR Thyroid Imaging, Reporting and Data System (TIRADS): White Paper of the ACR TI-RADS Committee. CONCLUSION: 1. Nonenlarged thyroid gland with tiny sub cm nodules bilaterally. These do not meet criteria for fine-needle aspiration or required follow-up. Additional follow-up can be obtained as clinically warranted. Dictated by: BRYSON Physician on 06/27/2020 at 10:34 AM
== END | disposition home or self-care (01) ==
LOC: RAD 08:16
PROVIDERS: ATTEND Nurse Practitioner Family
DX: E04.9 Nontoxic goiter, unspecified (principal)
CPT/HCPCS: 76536

== ENCOUNTER → 2020-10-06 | Outpatient (CLI) | payer BC | END | disposition home or self-care (01) | LOC: NPLAB 14:00 | PROVIDERS: ATTEND Nurse Practitioner Family | DX: Z03.818 Encounter for observation for suspected exposure to other biological agents ruled out (principal); Z20.828 Contact with and (suspected) exposure to other viral communicable diseases | CPT/HCPCS: U0003 ==

== ENCOUNTER → 2021-05-14 | Outpatient (CLI) | payer BC ==
--- NOTE | 2021-05-14 13:51 | DIREP ---
PROCEDURE:XR SPINE CERVICAL 2 OR 3 VIEWS COMPARISON:None. INDICATIONS:NECK PAIN TECHNIQUE:AP, lateral, and dens views of the cervical spine are provided. FINDINGS: ALIGNMENT:No measurable listhesis. VERTEBRAE:Small ventral disc osteophytes C3-4 through C6-7. Uncovertebral/facet hypertrophy noted at C3-4 through C5-6. DISK SPACES:Disc spaces are maintained. CERVICAL RIBS:None. OTHER:Odontoid largely obscured by dentition on odontoid view. CONCLUSION: 1. Mild multilevel cervical spondylosis. 2. Limited odontoid view. Dictated by: Nakul Llamas M.D. on 05/14/2021 at 01:48 PM
--- NOTE | 2021-05-14 13:57 | DIREP ---
PROCEDURE:XRAY SPINE LUMBAR 2-3 VWS COMPARISON:[facility], CT, CT ABD/PELVIS W/O, 11/30/2016, 03:58 PM. INDICATIONS:LOW BACK PAIN TECHNIQUE:AP, lateral, and coned down lateral views of the lumbar spine are provided. FINDINGS: ALIGNMENT:No measurable listhesis. VERTEBRAE:Endplate degenerative changes with ventral disc osteophytes spanning L2-3 through L5-S1. Endplate sclerosis L5-S1. DISK SPACES:Multilevel disc space narrowing most severe at L5-S1. SPONDYLOLISTHESIS:None. SACROILIAC JOINTS:Mild sacroiliac joint degenerative changes. OTHER:Presumed cholecystectomy clips in the right upper abdominal quadrant. CONCLUSION: 1. Lumbar spondylosis most severe at L5-S1. Dictated by: Nakul Llamas M.D. on 05/14/2021 at 01:54 PM
== END | disposition home or self-care (01) ==
LOC: RAD 09:58
PROVIDERS: ATTEND Chiropractor
DX: M48.07 Spinal stenosis, lumbosacral region (principal); M47.817 Spondylosis without myelopathy or radiculopathy, lumbosacral region; M25.78 Osteophyte, vertebrae; Z90.49 Acquired absence of other specified parts of digestive tract; M47.812 Spondylosis without myelopathy or radiculopathy, cervical region
CPT/HCPCS: 72040; 72100

== ENCOUNTER → 2021-06-18 | Outpatient (CLI) | payer BC ==
--- NOTE | 2021-06-18 11:20 | DIREP ---
PROCEDURE:XRAY ELBOW 2VWS-LT COMPARISON:None. INDICATIONS:M54.2 CERVICALGIA FINDINGS: BONES:Normal. JOINTS:Normal. No displaced anterior or posterior fat pads. SOFT TISSUES:Normal. OTHER:Normal. CONCLUSION: 1. No fracture, hemarthrosis, or arthritic changes are seen. Dictated by: Dominick Porter M.D. on 06/18/2021 at 11:18 AM
== END | disposition home or self-care (01) ==
LOC: RAD 08:55
PROVIDERS: ATTEND Nurse Practitioner Family
DX: M54.2 Cervicalgia (principal)
CPT/HCPCS: 73070-LT

== ENCOUNTER → 2022-09-22 | Outpatient (CLI) | payer BC ==
--- NOTE | 2022-09-22 13:23 | DIREP ---
PROCEDURE:BONE DENSITY PERIPHERAL COMPARISON: COMPARISON: INDICATIONS:Z79.3 MCC (CURRENT) USE OF HORMONAL CONTRACEPTIVES COMPARISON: FINDINGS: LUMBAR SPINE ALIGNMENT:Normal. SURGERY:No evidence of prior surgery is identified. DISKS:Normal. VERTEBRAE:Normal. LEFT HIP SURGERY:No evidence of prior surgery is identified. No FRAX data available. SUMMARY Region BMD(g/cm^2) T-Score Classification AP Spine(L1-L4) 1.165 -0.1 Normal Femoral Neck(Left) 0.907 -0.9 Normal Total Hip(Left) 0.905 -0.8 Normal Femoral Neck(Right) 0.899 -1.0 Normal Total Hip(Right) 0.953 -0.4 Normal CONCLUSION: 1. Normal bone mineral density of the lumbar spine. 2. Normal bone mineral density of the left femoral neck. 3. Normal bone mineral density of the left hip overall. 4. Normal bone mineral density of the right femoral neck. 5. Normal bone mineral density of the right hip overall. Dictated by: Oscar Lopez M.D. on 09/22/2022 at 01:13 PM
--- NOTE | 2022-09-22 19:27 | DIREP ---
PROCEDURE:US THYROID TECHNIQUE:Thyroid ultrasound was performed with a high-frequency transducer. COMPARISON:[facility], [place], US THYROID, 06/27/2020, 08:46 AM. INDICATIONS:NONTOXIC SINGLE THYROID NODULE FINDINGS: THYROID OVERVIEW Right lobe - size: 5.4 x 1.8 x 1.5 cm, homogeneous, 3 nodules Isthmus - size: 0.1 cm, homogeneous, 0 nodules Left lobe - size: 4.2 x 1.6 x 1.0 cm, homogeneous, 1 nodule THYROID NODULES Right Lobe, #1, Upper 1/3, size: 0.6 x 0.3 x 0.5 cm, prior size: 0.6 x 0.3 x 0.4 cm Description: mixed cystic and solid, isoechoic, bssbj-licg-estw, smooth TI-RADS: 2, Recommendation: No F/U or FNA required Right Lobe, #2, Middle 1/3, size: 0.6 x 0.4 x 0.6 cm, prior size: 0.6 x 0.4 x 0.5 cm Description: almost completely cystic, anechoic, nvcnc-epjq-zjed, smooth TI-RADS: 1, Recommendation: No F/U or FNA required Right Lobe, #3, Lower 1/3, size: 0.9 x 0.5 x 0.8 cm, prior size: 0.8 x 0.4 x 0.7 cm Description: solid or almost completely solid, isoechoic, kinsi-fqjz-pwik, smooth TI-RADS: 3, Recommendation: does not meet size criteria for F/U or FNA Left Lobe, #1, Middle 1/3, size: 0.5 x 0.3 x 0.3 cm, prior size: 0.5 x 0.4 x 0.4 cm Description: mixed cystic and solid, isoechoic, voqba-xnpv-tbuy, smooth, large comet-tail artifacts TI-RADS: 2, Recommendation: No F/U or FNA required TI-RADS: 1 = Benign, 2 = Not Suspicious, 3 = Mildly Suspicious, 4 = Moderately Suspicious, 5 = Highly Suspicious Reference: 2017 JACR, ACR Thyroid Imaging, Reporting and Data System (TIRADS): White Paper of the ACR TI-RADS Committee. OTHER:No additional findings. CONCLUSION: 1. 3 right thyroid nodules are 1 left thyroid nodule. 2. Based on TI-RADS criteria, no FNA or additional follow-up is required. Dictated by: BRYSON Physician on 09/22/2022 at 06:11 PM ac
== END | disposition home or self-care (01) ==
LOC: RAD 09:10
PROVIDERS: ATTEND Nurse Practitioner Family
DX: E04.2 Nontoxic multinodular goiter (principal); M85.88 Other specified disorders of bone density and structure, other site; Z79.3 Long term (current) use of hormonal contraceptives
CPT/HCPCS: 76536; 77080